=== PATIENT | male | born 1990 | race Caucasian/White ===

== ENCOUNTER → 2021-07-20 | Outpatient (CLI) | payer BC ==
--- NOTE | 2021-07-20 12:59 | CT ---
EXAMINATION TYPE: CT sinus wo con DATE OF EXAM: 07/20/2021 COMPARISON: None HISTORY: Chronic Sinusitis CT DLP: 622.30 mGycm. Automated Exposure Control for Dose Reduction was Utilized. TECHNIQUE: CT scan of the sinuses is performed without contrast, axial images are obtained, coronal r eformatted images are also reviewed. FINDINGS: There is near complete opacification the right maxillary sinus secondary to a combination o f mucosal thickening and large mucous retention cyst or polyps. Moderate changes are seen on the left with left-sided ostiomeatal occlusion. Right ostomy oh complex is patent. A mild to moderate ethmoidal chronic appearing sinusitis. Sphenoid and frontal sinuses have a normal appearance. No air-fluid levels. There is a nasal septal deviation. Orbits are intact. Intracranial structures are symmetric. Mastoid air cells are clear. Nasopharynx an d oropharynx symmetric.. IMPRESSION: 1. Moderate to severe right maxillary chronic sinusitis with moderate changes on the left. Mucous ret ention cyst or polyp suspected within both maxillary antrum combined with mucosal thickening. Correla te clinically to exclude sinonasal polyposis. 2. Moderate ethmoidal sinusitis.
== END | disposition home or self-care (01) ==
LOC: RADCTMAIN 12:28
PROVIDERS: ATTEND Family Medicine
DX: J32.2 Chronic ethmoidal sinusitis (principal); J32.0 Chronic maxillary sinusitis; J34.89 Other specified disorders of nose and nasal sinuses
CPT/HCPCS: 70486